=== PATIENT | male | born 1990 | race Caucasian/White ===

== ENCOUNTER 2017-05-29 11:02 | Emergency (ER) | payer SELFPAY ==
[2017-05-29] MEDS: HYDROcodone/APAP 5/325MG 1 TAB TABLET PO (12:11)
== END 2017-05-29 12:15 | disposition home or self-care (01) ==
LOC: ER 11:02
DX: S63.274A Dislocation of unspecified interphalangeal joint of right ring finger, initial encounter (principal); K21.9 Gastro-esophageal reflux disease without esophagitis; G89.29 Other chronic pain; M41.9 Scoliosis, unspecified; W23.0XXA Caught, crushed, jammed, or pinched between moving objects, initial encounter; Y93.89 Activity, other specified; Y92.69 Other specified industrial and construction area as the place of occurrence of the external cause; Y99.8 Other external cause status
CPT/HCPCS: 26770; 73140; 99284-25

== ENCOUNTER 2019-02-18 22:08 | Emergency (ER) | payer SELFPAY ==
[~2019-02-18] VITALS: Ht 170.2 cm; Wt 68.0 kg
[~2019-02-18 22:08] MED LIST: CYCL10TA2 PO; NAPR-683 PO
--- NOTE | 2019-02-18 22:24 | PHYS DOC ---
Past Medical History Past Medical History: GERD, Other Additional Past Medical Histor: CHRONIC BACK PAIN, SCOLIOSIS Past Surgical History: Other Additional Past Surgical Histo: right finger surgery, vein removal from urethra Alcohol Use: None Drug Use: None Adult General Chief Complaint Chief Complaint: OVERDOSE HPI HPI 28-year-old male presents to the emergency department via EMS with accidental overdose. He was found unresponsive with agonal respirations by PD, CPR was initiated at that time for approximately 1 minute, upon EMS arrival patient was provided with 2 mg of Narcan with improvement. Patient states this was unintentional drug overdose he does have a history of chronic pain. He states he did drink some alcohol around 4 PM today. He is currently alert and oriented he does complain of some chest pain. Nothing makes his symptoms worse, nothing makes his symptoms better. Patient denies nausea, vomiting, headache, visual change, abdominal pain. Review of Systems Review of Systems Constitutional: Denies fever or chills [] Eyes: Denies change in visual acuity, redness, or eye pain [] HENT: Denies nasal congestion or sore throat [] Respiratory: Denies cough or shortness of breath [] Cardiovascular: No additional information not addressed in HPI [] GI: Denies abdominal pain, nausea, vomiting, bloody stools or diarrhea [] : Denies dysuria or hematuria [] Musculoskeletal: Denies back pain or joint pain [] Integument: Denies rash or skin lesions [] Neurologic: Denies headache, focal weakness or sensory changes [] All other systems were reviewed and found to be within normal limits, except as documented in this note. Current Medications Current Medications Current Medications Medications (Trade) Dose Ordered Sig/Donna Start Time Stop Time Status Last Admin Dose Admin Potassium Chloride (Klor-Con) 20 meq STK-MED ONCE 02/18/19 23:08 02/18/19 23:08 DC Allergies Allergies Allergies Coded Allergies Type Severity Reaction Last Updated Verified No Known Drug Allergies 11/13/15 No Physical Exam Physical Exam Constitutional: Well developed, well nourished, no acute distress, non-toxic appearance. [] HENT: Normocephalic, atraumatic, bilateral external ears normal, oropharynx moist, no oral exudates, nose normal. [] Eyes: PERRLA, EOMI, conjunctiva normal, no discharge. [] Cardiovascular:Heart rate regular rhythm, no murmur [] Lungs & Thorax: Bilateral breath sounds clear to auscultation [] Abdomen: Bowel sounds normal, soft, no tenderness, no masses, no pulsatile masses. [] Skin: Warm, dry, no erythema, no rash. [] Back: No tenderness, no CVA tenderness. [] Extremities: No tenderness, no edema. [] Neurologic: Alert and oriented X 3, no focal deficits noted. [] Psychologic: Affect normal, judgement normal, mood normal. [] Current Patient Data Vital Signs Vital Signs Date Time Temp Pulse Resp B/P (MAP) Pulse Ox O2 Delivery O2 Flow Rate FiO2 02/18/19 23:10 112 16 106/58 (74 94 Room Air 02/18/19 22:10 2.0 02/18/19 22:08 97.8 97.8 EKG EKG EKG reviewed, sinus tachycardia heart rate 124, normal axis, no evidence of ST elevation [place], interpretation time 2212[] Radiology/Procedures Radiology/Procedures [facility] [address] [place] [address] IMAGING REPORT Signed PATIENT: ALAINA MURILLO ACCOUNT: [id number] : 1990 LOCATION: ER AGE: 28 SEX: M EXAM STATUS: REG ER ORD. PHYSICIAN: KALLI NG MD REASON: chest pain after CPR PROCEDURE: CHEST AP ONLY Indication: Chest pain after CPR. TECHNIQUE:Portable AP chest X-ray COMPARISON: None FINDINGS: Heart is normal in size. Lungs are clear. No pneumothorax or pleural effusion. Visualized bony thorax within normal limits. IMPRESSION: No acute pulmonary process. Electronically signed by: Medhat Bullard DO (02/18/2019 11:37 PM) [facility] DICTATED and SIGNED BY: MEDHAT BULLARD DO DATE: 02/18/19 [id number] [] Course & Med Decision Making Course & Med Decision Making Pertinent Labs and Imaging studies reviewed. (See chart for details) []28-year-old male presents to the emergency department via EMS with accidental overdose. He was found unresponsive with agonal respirations by PD, CPR was initiated at that time for approximately 1 minute, upon EMS arrival patient was provided with 2 mg of Narcan with improvement. Patient states this was unintentional drug overdose he does have a history of chronic pain. He states he did drink some alcohol around 4 PM today. He is currently alert and oriented he does complain of some chest pain. Nothing makes his symptoms worse, nothing makes his symptoms better. Patient denies nausea, vomiting, headache, visual change, abdominal pain. Labs/Imaging reviewed Patient remains a little drowsy with family. I recommended admit to the hospital and observation however he declines Patient was observed for 1 hour in ER Patient signed AMA form and left the hospital Dragon Disclaimer Dragon Disclaimer This electronic medical record was generated, in whole or in part, using a voice recognition dictation system. Departure Departure Impression: Primary Impression: Overdose Additional Impression: Left against medical advice Disposition: 07 AGAINST MEDICAL ADVICE Condition: IMPROVED Referrals: NO PCP (PCP) Patient Instructions: Overdose, Accidental Additional Instructions: Recommend follow up with PCP 3 - 5 days Return to the ER with worsening symptoms, intractable pain, fever, altered mental status Tylenol/Motrin as needed for pain Problem Qualifiers Primary Impression: Overdose Encounter type: initial encounter Injury intent: accidental or unintentional Qualified Codes: T50.901A - Poisoning by unspecified drugs, medicaments and biological substances, accidental (unintentional), initial encounter KALLI NG MD Feb 18, 2019 22:24
[2019-02-18 22:38] LABS: BASO # 0.1 x10^3/uL (0.0-0.2); BASO % 1 % (0-3); EOS # 0.1 x10^3/uL (0.0-0.7); EOS % 1 % (0-3); HEMATOCRIT 51.1 % (39.0-53.0); HEMOGLOBIN 17.7 g/dL (13.0-17.5); LYMPH # 1.7 x10^3/uL (1.0-4.8); LYMPH % 24 % (24-48); MEAN CORPUSCULAR HEMOGLOBIN 31 pg (25-35); MEAN CORPUSCULAR HGB CONC 35 g/dL (31-37); MEAN CORPUSCULAR VOLUME 89 fL (79-100); MONO # 0.3 x10^3/uL (0.0-1.1); MONO % 5 % (0-9); NEUT # 5.1 x10^3/uL (1.8-7.7); NEUT % 70 % (31-73); PLATELET COUNT 248 x10^3/uL (140-400); RED BLOOD COUNT 5.75 x10^6/uL (4.30-5.70); RED CELL DISTRIBUTION WIDTH 14.2 % (11.5-14.5); WHITE BLOOD COUNT 7.3 x10^3/uL (4.0-11.0)
[2019-02-18 22:45] LABS: CALCIUM 8.5 mg/dL (8.5-10.1); CREATININE 0.9 mg/dL (0.7-1.3); GFR 99.8; POTASSIUM 3.2 mmol/L (3.5-5.1)
[2019-02-18 22:51] LABS: ALBUMIN 4.2 g/dL (3.4-5.0); ALBUMIN/GLOBULIN RATIO 1.2 (1.0-1.7); TOTAL BILIRUBIN 0.2 mg/dL (0.2-1.0); TOTAL PROTEIN 7.6 g/dL (6.4-8.2)
[2019-02-18] MEDS ORDERED: POTASSIUM CHLORIDE 20 MEQ TABLET.ER. PO ONE (23:08)
[2019-02-18 23:10] VITALS: BP 106/58
--- NOTE | 2019-02-18 23:40 | RAD ---
Indication: Chest pain after CPR. TECHNIQUE:Portable AP chest X-ray COMPARISON: None FINDINGS: Heart is normal in size. Lungs are clear. No pneumothorax or pleural effusion. Visualized bony thorax within normal limits. IMPRESSION: No acute pulmonary process. Electronically signed by: Medhat Bullard DO (02/18/2019 11:37 PM) [facility]
[2019-02-19] MEDS ORDERED: POTASSIUM CHLORIDE 20 MEQ TABLET.ER. PO ONE
[2019-02-19] MEDS ORDERED: IV NORMAL SALINE 1000ML BAG 1,000 ML IV ONE
--- NOTE | 2019-02-19 07:56 | EKG ---
[facility] [address] [place] [address] Test Date: 2019-02-18 Test Time: 22:12:17 Pat Name: ALAINA MURILLO Department: Room: Gender: M Smoke Jumper: : 1990 Requested By: KALLI NG Order Number: [id number] Reading MD: Justin Cervantes Measurements Intervals [place] Rate: 124 P: 81 [place]: 126 QRS: 70 QRSD: 92 T: 45 QT: 312 QTc: 452 Interpretive Statements SINUS TACHYCARDIA Electronically Signed On 02-22-2019 14:38:45 [employer] by Justin Cervantes
== END 2019-02-18 23:13 | disposition left against medical advice (07) ==
LOC: ER 22:08
DX: T50.901A Poisoning by unspecified drugs, medicaments and biological substances, accidental (unintentional), initial encounter (principal); K21.9 Gastro-esophageal reflux disease without esophagitis; G89.29 Other chronic pain; M41.9 Scoliosis, unspecified; Z98.890 Other specified postprocedural states; Z90.89 Acquired absence of other organs; Y92.89 Other specified places as the place of occurrence of the external cause
CPT/HCPCS: 36415; 71045; 80053; 85025; 99285; J7030; 93005

== ENCOUNTER 2020-01-30 11:31 | Emergency (ER) | payer SELFPAY ==
[~2020-01-30] VITALS: Ht 170.2 cm; Wt 71.8 kg
[2020-01-30 12:27] VITALS: BP 150/84
[2020-01-30] MEDS ORDERED: AMOX500T PO (13:05)
[2020-01-30] MEDS ORDERED: DICL50TA2 PO (13:05)
--- NOTE | 2020-01-30 13:05 | PHYS DOC ---
Past Medical History Past Medical History: GERD, Other Additional Past Medical Histor: CHRONIC BACK PAIN, SCOLIOSIS Past Surgical History: Other Additional Past Surgical Histo: right finger surgery, vein removal from urethra Smoking Status: Current Every Day Smoker Alcohol Use: None Drug Use: Marijuana, Opiates General Adult EDM: Chief Complaint: DENTAL PROBLEM HPI: HPI: Patient is a 29 year old male who presents to the ED today complaining of right lower gum dental pain rated at 8 out of 10 that began 2 weeks ago. Patient denies any fever or trismus but states he has enough infection that he feels like he is swallowing some of it. He states is an appointment with a dentist in 2 weeks. Review of Systems: Review of Systems: Constitutional: Denies fever or chills. [] Eyes: Denies change in visual acuity. [] HENT: Reports dental pain. Denies nasal congestion or sore throat. [] Musculoskeletal: Denies back pain or joint pain. [] Integument: Denies rash. [] Neurologic: Denies headache, focal weakness or sensory changes. [] Psychiatric: Denies depression or anxiety. [] Heart Score: Risk Factors: Risk Factors: DM, Current or recent (<one month) smoker, HTN, HLP, family history of CAD, obesity. Risk Scores: Score 0 - 3: 2.5% MACE over next 6 weeks - Discharge Home Score 4 - 6: 20.3% MACE over next 6 weeks - Admit for Clinical Observation Score 7 - 10: 72.7% MACE over next 6 weeks - Early Invasive Strategies Allergies: Allergies: Allergies Coded Allergies Type Severity Reaction Last Updated Verified No Known Drug Allergies 11/13/15 No Physical Exam: PE: Constitutional: Well developed, well nourished, no acute distress, non-toxic appearance. [] HENT: Normocephalic, atraumatic, bilateral external ears normal, oropharynx moist, no oral exudates, nose normal. [] Right lower gum tooth #20 and 21 dental filling appears to be broken down. Slight erythema around the gums, no fluctuance, no abscess Skin: Warm, dry, no erythema, no rash. [] Back: No tenderness, no CVA tenderness. [] Extremities: No tenderness, no cyanosis, no clubbing, ROM intact, no edema. [] Neurologic: Alert and oriented X 3, normal motor function, normal sensory function, no focal deficits noted. [] Psychologic: Affect normal, judgement normal, mood normal. [] Current Patient Data: Vital Signs: Vital Signs Date Time Temp Pulse Resp B/P (MAP) Pulse Ox O2 Delivery O2 Flow Rate FiO2 01/30/20 12:27 98.4 79 18 150/84 (106) 97 Room Air 98.4 EKG: EKG: [] Radiology/Procedures: Radiology/Procedures: [] Course & Med Decision Making: Course & Med Decision Making Pertinent Labs and Imaging studies reviewed. (See chart for details) This is a 29-year-old male patient with dental infection. Discharged with amoxicillin and diclofenac. Follow-up with the dentist. Lelia Disclaimer: Dragsunitha Disclaimer: This electronic medical record was generated, in whole or in part, using a voice recognition dictation system. Departure Departure Impression: Primary Impression: Dentalgia Additional Impression: Dental infection Disposition: 01 DC HOME SELF CARE/HOMELESS Condition: STABLE Referrals: NO PCP (PCP) follow up with a dentist as soon as you can Patient Instructions: Dental Caries Additional Instructions: You have dental infection. Take the prescribed antibiotics until completed and follow-up with the dentist as soon as you can Scripts Diclofenac Potassium (DICLOFENAC POTASSIUM) 50 Mg Tablet 1 TAB PO BID, #20 TAB 0 Refills Prov: LYNN BYRD APRN 01/30/20 Amoxicillin (AMOXICILLIN) 500 Mg Tablet 1 TAB PO BID, #20 TAB Prov: LYNN BYRD APRN 01/30/20 LYNN BYRD APRN Jan 30, 2020 13:05
== END 2020-01-30 13:15 | disposition home or self-care (01) ==
LOC: ER 11:31
DX: K04.7 Periapical abscess without sinus (principal); K08.89 Other specified disorders of teeth and supporting structures; L53.9 Erythematous condition, unspecified; K21.9 Gastro-esophageal reflux disease without esophagitis; G89.29 Other chronic pain; F17.200 Nicotine dependence, unspecified, uncomplicated; F12.90 Cannabis use, unspecified, uncomplicated; F14.90 Cocaine use, unspecified, uncomplicated; Z98.890 Other specified postprocedural states
CPT/HCPCS: 99283